=== PATIENT | male | born 1955 | race Caucasian/White ===

== ENCOUNTER 2018-06-08 06:55 | Outpatient (CLI) | payer BC ==
--- NOTE | 2018-06-08 08:36 | ULT ---
SONOGRAM ABDOMEN COMPLETE: History: Upper abdomen pain. Nausea. FINDINGS: Small amount of nonshadowing echogenic material layers within the dependent portion of the gallbladde r lumen. No gallbladder wall thickening or pericholecystic fluid. Common duct is prominent at 0.9 cm greatest diameter. Liver unremarkable without focal mass or intrahepatic biliary dilatation. No free fluid. The spleen, kidneys, and visualized portions of the abdominal aorta, IVC, and pancreas are unr emarkable. IMPRESSION: Biliary sludge within the gallbladder. Dilated common duct could represent a central obstruction. Ple ase consider gastroenterologic consultation and potential ERCP for further evaluation. POS: CHRISTOPHER
== END 2018-06-08 06:56 | disposition home or self-care (01) ==
LOC: SCSULT 06:55
PROVIDERS: ATTEND Family Medicine
DX: R10.9 Unspecified abdominal pain (principal); K82.8 Other specified diseases of gallbladder
CPT/HCPCS: 76700

== ENCOUNTER 2020-08-21 12:56 | Outpatient (CLI) | payer MEDICARE ==
--- NOTE | 2020-08-21 14:15 | RAD ---
XR Abdomen 1 View/KUB History: Colonoscopy Comparison: None. Findings: No dilated air-filled loops of large or small bowel. Moderate stool burden within the rectu m. No abnormal calcifications project over the renal shadows. Small bilateral acetabular osteophytes. Impression: No evidence for bowel obstruction.
--- NOTE | 2020-08-21 14:16 | RAD ---
XR Lumbar Spine 2 Or 3 View History: Low back pain Comparison: None. Findings: No acute fracture. Moderate facet arthrosis L3-S1. No significant listhesis. Mild L3/L4 L4/L5 degenerative disc space height loss. Impression: Mild spondylosis lower lumbar spine. No acute osseous abnormality.
== END 2020-08-21 12:57 | disposition home or self-care (01) ==
LOC: BICRAD 12:56
PROVIDERS: ATTEND Internal Medicine Gastroenterology
DX: M54.5 Low back pain (principal); M47.816 Spondylosis without myelopathy or radiculopathy, lumbar region
CPT/HCPCS: 72100; 74018